=== PATIENT | male | born 1970 | race Caucasian/White ===

== ENCOUNTER 2020-10-29 16:03 | Inpatient (IN) | payer BC ==
[2020-10-29 16:57] LABS: HEMOGLOBIN 15.4 gm/dl (14.0-17.5); RED BLOOD COUNT 4.95 M/UL (4.20-5.50)
[2020-10-29 17:03] LABS: BUN/CREATININE RATIO 13 (0-10)
[2020-10-30 05:53] LABS: HEMOGLOBIN 15.2 gm/dl (14.0-17.5); RED BLOOD COUNT 4.95 M/UL (4.20-5.50)
[2020-10-30 06:25] LABS: BUN/CREATININE RATIO 17 (0-10)
[2020-10-31 03:26] LABS: ACINETOBACTER BAUMANNII Not Detected (Negative); CANDIDA ALBICANS Not Detected (Negative); CANDIDA KRUSEI Not Detected (Negative); CANDIDA TROPICALIS Not Detected (Negative); ENTEROCOCCUS Not Detected (Negative); ESCHERICHIA COLI Not Detected (Negative); HAEMOPHILUS INFLUENZAE Not Detected (Negative); KLEBSIELLA OXYTOCA Not Detected (Negative); KLEBSIELLA PNEUMONIAE Not Detected (Negative); KPC-CARBAPENEM-RESISTANCE GENE Not Detected (Negative); PROTEUS Not Detected (Negative); PSEUDOMONAS AERUGINOSA Not Detected (Negative); SERRATIA MARCESANS Not Detected (Negative); STAPHYLOCOCCUS AUREUS Not Detected (Negative); STREP AGALACTIAE (GROUP B) Not Detected (Negative); STREP PYOGENES (GROUP A) Not Detected (Negative); STREPTOCOCCUS Not Detected (Negative); mecA (METHICILLIN RESIST GENE Not Detected (Negative); vanA/B (VANCOMYCIN RESIST GENE Not Detected (Negative)
[2020-10-31 05:24] LABS: STAPHYLOCOCCUS DETECTED (Negative)
== END 2020-10-30 10:04 | disposition left against medical advice (07) | DRG 177 ==
LOC: ER1 16:03 → CDU 20:24
PROVIDERS: Physician Assistant; ADMIT Internal Medicine
PROC: XW033E5 Introduction of Remdesivir Anti-infective into Peripheral Vein, Percutaneous Approach, New Technology Group 5 (ICD-10-PCS; principal; 2020-10-29)
PROC: 3E0333Z Introduction of Anti-inflammatory into Peripheral Vein, Percutaneous Approach (ICD-10-PCS; 2020-10-29)
DX: U07.1 COVID-19 (principal); J12.82 Pneumonia due to coronavirus disease 2019; J96.01 Acute respiratory failure with hypoxia; E87.1 Hypo-osmolality and hyponatremia; E87.2 Acidosis; E11.9 Type 2 diabetes mellitus without complications; J45.909 Unspecified asthma, uncomplicated
CPT/HCPCS: 36600; 71045; 80053; 82550; 82553; 82728; 82803; 83605; 83615; 83874; 84439; 84443; 84484; 85025; 85379; 86140; 87040; 87077; 87150; 87186; 93005; 94760; 96374; 96375; 99285; J0456; J0696; J1100; J1650; J7030; Q9967; U0002

== ENCOUNTER 2020-10-30 11:40 | Emergency (ER) | payer BC ==
[~2020-10-30] VITALS: Ht 182.9 cm; Wt 113.4 kg
[2020-10-30 12:35] LABS: HEMOGLOBIN 14.9 gm/dl (14.0-17.5); RED BLOOD COUNT 4.79 M/UL (4.20-5.50); WHITE BLOOD COUNT 11.2 K/UL (4.5-11.0)
[2020-10-30 13:03] LABS: BUN/CREATININE RATIO 18 (0-10)
== END 2020-10-30 21:00 | disposition left against medical advice (07) ==
LOC: ER1 11:40 → CDU 13:32
PROVIDERS: Student in an Organized Health Care Education/Training Program
PROC: XW033E5 Introduction of Remdesivir Anti-infective into Peripheral Vein, Percutaneous Approach, New Technology Group 5 (ICD-10-PCS; principal; 2020-10-30)
PROC: 3E0333Z Introduction of Anti-inflammatory into Peripheral Vein, Percutaneous Approach (ICD-10-PCS; 2020-10-30)
PROC: 8E0ZXY6 Isolation (ICD-10-PCS; 2020-10-30)
DX: U07.1 COVID-19 (principal); J12.82 Pneumonia due to coronavirus disease 2019; J96.01 Acute respiratory failure with hypoxia; Z91.14 Patient's other noncompliance with medication regimen
CPT/HCPCS: 36600; 80053; 82550; 82553; 82803; 83874; 84484; 85025; 93005; 94664; 96374; 99285; G0378; G0480; J1100; J7030; Q9967